=== PATIENT | female | born 1990 | race Caucasian/White ===

== ENCOUNTER 2017-11-28 12:37 | Day surgery (SDC) | payer OTHER ==
[2017-11-28 14:08] LABS: INR 1.04; PROTIME 13.7 Sec (11.9-14.9); PT RATIO 1.1
[2017-11-28 14:09] LABS: PARTIAL THROMBOPLASTIN TIME 28.2 Sec (25.0-35.0)
[2017-11-28] MEDS ORDERED: METOCLOPRAMIDE 10 MG INJ (18:06)
[2017-11-28] MEDS ORDERED: MIDAZOLAM 1 MG/ML 2 ML INJ (18:06)
[2017-11-28] MEDS: BUPIVACAINE 0.25% (MPF) 30 ML INJ (18:33)
[2017-11-28] MEDS ORDERED: KETOROLAC 30 MG INJ (18:39)
[2017-11-28] MEDS ORDERED: ROCURONIUM 50 MG INJ (18:39)
[2017-11-28] MEDS ORDERED: PROPOFOL 20 ML (18:39)
[2017-11-28] MEDS ORDERED: GLYCOPYRROLATE 0.4 MG INJ (18:39)
[2017-11-28] MEDS ORDERED: ONDANSETRON 4 MG INJ (18:39)
[2017-11-28] MEDS ORDERED: ROPIVACAINE 0.5 % 30 ML VIAL (18:39)
[2017-11-28] MEDS ORDERED: NEOSTIGMINE 3 MG/3 ML SYRINGE (18:39)
[2017-11-28] MEDS ORDERED: HYDROCODONE/APAP (5/325) TAB PO (19:00)
[2017-11-28] MEDS: MEPERIDINE 25 MG INJ IV (19:15)
[2017-11-28] MEDS: HYDROmorphONE 1 MG/5 ML IV SYRINGE IV (19:15)
[2017-11-28] MEDS ORDERED: DIPHENHYDRAMINE 50 MG INJ IV (19:30)
[2017-11-28] MEDS ORDERED: HYDROmorphONE 1 MG/5 ML IV SYRINGE IV ×2 (19:30)
[2017-11-28] MEDS: ONDANSETRON 4 MG INJ IV (19:48)
== END 2017-11-28 21:02 | disposition home or self-care (01) ==
LOC: SDS 12:37
DX: K81.1 Chronic cholecystitis (principal)
CPT/HCPCS: 47562; 84703; 85610; 85730; 88304

== ENCOUNTER → 2017-11-30 | Emergency (ER) | payer OTHER ==
[2017-11-30] MEDS: DOCUSATE SODIUM 250 MG CAP PO (17:14)
== END | disposition home or self-care (01) ==
LOC: FTE 15:23
DX: K59.00 Constipation, unspecified (principal)
CPT/HCPCS: 74019; 81025; 99283-25